=== PATIENT | female | born 1950 | race Caucasian/White ===

== ENCOUNTER 2019-01-07 09:11 | Emergency (ER) | payer MEDICARE, SELFPAY ==
[2019-01-07] VITALS (14 sets, daily range): BP systolic 107–124; BP diastolic 49–61; PULSE 64–79; RESP 11–19; TEMP 36.8; O2SAT 96–98
--- NOTE | 2019-01-07 09:58 | DI.CT_ITS ---
SYMPTOMS/DIAGNOSIS: CONFUSION, NAUSEA, CHILLS, ? ACUTE CVA CRANIAL CT: Noncontrast cranial CT was performed. There appears to be mild bifrontal cerebral atrophy. There is no evidence of acute intracranial hemorrhage, mass effect or midline shift. The orbital and temporal bone structures appear intact and the visualized paranasal sinuses are well aerated. CONCLUSION: No evidence of acute intracranial process.
--- NOTE | 2019-01-07 09:58 | DI.RAD_ITS ---
SYMPTOMS/DIAGNOSIS: COUGH, CHILLS, ? ACUTE DISEASE PA AND LATERAL CHEST: The lungs appear somewhat hyperinflated consistent with COPD. The cardiac size is within normal limits. No focal consolidation or pleural effusion seen. CONCLUSION: Presumed COPD. No evidence of acute process.
--- NOTE | 2019-01-07 10:02 | ED.GENADUL_ITS ---
Discharge Plan Disposition Patient Disposition: HOME Condition: Improving Discharge Details Chief Complaint: GenMedical Clinical Impression: UTI (urinary tract infection), Chills, Confusion Primary Care Provider: Judi Herr ED Provider: Yoselyn Allen Home Meds and New Rx's Prescriptions: New sulfamethoxazole-trimethoprim [Bactrim DS] 800-160 mg tablet 1 tab PO BID 7 Days Qty: 14 RF: 0 Continued ascorbic acid (vitamin C) [Vitamin C] 500 mg Tablet 500 mg PO DAILY RF: 0 vitamin B complex [B Complex 1] Tablet 1 tab PO DAILY RF: 0 sertraline [Zoloft] 50 mg Tablet 50 mg PO HS RF: 0 atenolol 50 mg Tablet 50 mg PO HS RF: 0 cholecalciferol (vitamin D3) [Vitamin D3] 2,000 unit Capsule 2,000 unit PO HS RF: 0 Akbar-Mag 200 mg calcium- 100 mg Tablet,Chewable 1 tab PO HS RF: 0 Centrum Silver Women 8 mg iron-400 mcg-300 mcg Tablet 1 tab PO DAILY RF: 0 biotin 1 mg Capsule 2 mg PO DAILY RF: 0 Probiotic 100 billion cell Capsule 0.5 cap PO DAILY RF: 0 acetaminophen [Tylenol Extra Strength] 500 mg Tablet 1,000 mg PO PRN PRNRF: 0 Premarin 0.625 mg/gram Cream 1 applic Vaginal PRN PRNRF: 0 naproxen sodium 220 mg Capsule 440 mg PO BID PRN PRNRF: 0 Discharge Instructions Instructions: Urinary Tract Infection in Women (ED), Altered Mental Status (ED) Additional Instructions: Take the antibiotics until finished. Alternate Tylenol Motrin as needed and directed for pain. Drink plenty of fluids get plenty of rest. Call your primary care doctor tomorrow to schedule a follow-up appointment for reevaluation. Return immediately to the emergency department with any worsening or concerning symptoms. Discharge Data Discharge Physician: Yoselyn Allen Medical Decision Making 68-year-old female with a history of breast cancer, exercise-induced asthma, dysthymia who presents with chills since last night with some dizziness, nausea and mild confusion at home today. Patient completely back to baseline at this time per daughter. Vitals within normal limits. Patient appears nontoxic. She is pleasant and in no acute distress. Normal ENT exam. Lungs clear to auscultation. Abdomen soft nontender. No focal deficits. EKG noted a rate of 74 and sinus and no acute ST findings. Discussed with patient at length regarding the possible diagnoses which includes urinary tract infection, pneumonia, sinus infection, CVA, electrolyte abnormality, arrhythmia, dehydration. Patient had not complained of any facial droop or extremity weakness or numbness and overall history and exam does not appear consistent with a TIA. She has no complaints of headache or neck pain, and no meningeal signs so doubt meningitis. Will place an IV, bolus IV fluids, labs, urinalysis, chest x-ray and CT head. 1200 --labs and imaging reviewed. White blood cell count 15. Normal rachelle ctrolytes. Troponin negative. Urinalysis notes 5-10 WBCs, few bacteria, small leukocyte esterase, and rare epithelial cells. Urine culture sent. Chest x-ray and CT head negative. Patient feels much better and denies any acute complaints. She admits to some mild nausea at this time but does not want any nausea medication. Discussed at length with patient and daughter that it is possible that urinary tract infection is the source of her chills, dizziness and mild confusion today. Patient is oriented x3. Daughter states she feels comfortable taking patient home. Again discussed at length the possible diagnoses and that this does not appear consistent with CVA, or meningitis. Patient was offered admission but states she does not want to stay in the hospital. Patient has tolerated Bactrim in the past. Will give 1 dose of Bactrim here as well as prescription for home. She is instructed to drink plenty of fluids, get plenty of rest, call the primary care doctor tomorrow to schedule follow-up appointment for reevaluation and return here immediately if worse. Medical Records Medical records reviewed: Yes I reviewed the patient's medical records. Imaging Data Radiologic Study: Radiologist's impression: CT Head Without Contrast EXAM DATE/TIME: 01/07/2019 10:00 AM FINDINGS: Brain: No acute intracranial hemorrhage. There is mild diffuse heterogeneity of the white matter attenuation, consistent with chronic white matter ischemic changes. Mild cerebral atrophy Ventricles: Normal. No ventriculomegaly. Bones/joints: Unremarkable. No acute fracture. Sinuses: Visualized sinuses are unremarkable. No acute sinusitis. Mastoid air cells: Visualized mastoid air cells are unremarkable. No mastoid effusion. Soft tissues: Unremarkable. IMPRESSION: No acute intracranial hemorrhage. XR Chest, 2 Views EXAM DATE/TIME: 01/07/2019 10:00 AM FINDINGS: Lungs: Hyperexpanded lung mayer consistent with COPD . No focal consolidation Pleural space: Unremarkable. No pleural effusion. No pneumothorax. Heart/Mediastinum: Unremarkable. No cardiomegaly. Bones/joints: Unremarkable. IMPRESSION: Hyperexpanded lung mayer consistent with COPD Lab Data Lab results reviewed: Yes I reviewed the patient's lab results. 01/07/19 11:33 Urine - Reflex from Ua Urine Culture - Pending Laboratory Tests Range/Units 01/07/19 01/07/19 01/07/19 09:40 09:40 09:40 WBC (4.4-10.8) k/cumm 15.15 H RBC (4.00-5.20) m/cumm 3.64 L Hgb (12.0-15.5) g/dL 12.2 Hct (36.0-46.0) % 36.1 MCV (80-95) fL 99.2 H MCH (27.0-33.0) pg 33.5 H MCHC (32.0-36.0) g/dL 33.8 RDW (11.7-14.6) % 12.8 Plt Count (130-400) x1000/uL 339 MPV (8.0-11.0) fL 10.1 Immature Gran % 0.3 Neutrophils % 87.6 Lymphocytes % 4.6 Monocytes % 6.5 Eosinophils % 0.7 Basophils % 0.3 Absolute Neutrophils (1.2-6.7) k/cumm 13.27 H Absolute Lymphocytes (1.2-3.4) k/cumm 0.70 L Absolute Monocytes (0.11-0.7) k/cumm 0.98 H Absolute Eosinophils (0.0-0.7) k/cumm 0.11 Absolute Basophils (0.0-0.2) k/cumm 0.05 Sodium (136-145) mmol/L 133 L Potassium (3.5-5.1) mmol/L 4.2 Chloride (98-107) mmol/L 99 Carbon Dioxide (21.0-32.0) mmol/L 22.5 Anion Gap (3-11) mmol/L 11.5 H BUN (7-18) mg/dL 23 H Creatinine (0.55-1.02) mg/dL 0.92 Estimated GFR/1.73 m2 (mL/min/1.73m2) >= 60.00 Glucose (70-100) mg/dL 111 H Lactate (0.6-1.4) mmol/l 1.0 Calcium (8.5-10.1) mg/dL 8.9 Magnesium (1.8-2.4) mg/dL 2.1 Total Bilirubin (0.2-1.0) mg/dL 0.6 AST (15-37) U/L 14 L ALT (12-78) U/L 16 Alkaline Phosphatase (46-116) U/L 56 Troponin I (0.00-0.06) ng/mL < 0.02 Total Protein (6.4-8.2) g/dL 7.4 Albumin (3.4-5.0) g/dL 3.5 Urine Color (Yellow) Urine Clarity Urine pH (5-8) Ur Specific [place] (1.005-1.025) Urine Protein (Negative) mg/dL Urine Ketones (Negative) mg/dL Urine Blood (Negative) Urine Nitrite (Negative) Urine Bilirubin (Negative) Urine Urobilinogen (Up TO 0.2) EU/dL Ur Leukocyte Esterase (Negative) Urine RBC (0-2) Urine WBC (0-5) HPF Ur Epithelial Cells (Negative) HPF Urine Crystals (Negative) HPF Urine Bacteria (Negative) HPF Urine Casts (Negative) LPF Urine Mucus (Negative) Ur Culture Indicated? Urine Glucose (Negative) mg/dL Range/Units 01/07/19 11:33 WBC (4.4-10.8) k/cumm RBC (4.00-5.20) m/cumm Hgb (12.0-15.5) g/dL Hct (36.0-46.0) % MCV (80-95) fL MCH (27.0-33.0) pg MCHC (32.0-36.0) g/dL RDW (11.7-14.6) % Plt Count (130-400) x1000/uL MPV (8.0-11.0) fL Immature Gran % Neutrophils % Lymphocytes % Monocytes % Eosinophils % Basophils % Absolute Neutrophils (1.2-6.7) k/cumm Absolute Lymphocytes (1.2-3.4) k/cumm Absolute Monocytes (0.11-0.7) k/cumm Absolute Eosinophils (0.0-0.7) k/cumm Absolute Basophils (0.0-0.2) k/cumm Sodium (136-145) mmol/L Potassium (3.5-5.1) mmol/L Chloride (98-107) mmol/L Carbon Dioxide (21.0-32.0) mmol/L Anion Gap (3-11) mmol/L BUN (7-18) mg/dL Creatinine (0.55-1.02) mg/dL Estimated GFR/1.73 m2 (mL/min/1.73m2) Glucose (70-100) mg/dL Lactate (0.6-1.4) mmol/l Calcium (8.5-10.1) mg/dL Magnesium (1.8-2.4) mg/dL Total Bilirubin (0.2-1.0) mg/dL AST (15-37) U/L ALT (12-78) U/L Alkaline Phosphatase (46-116) U/L Troponin I (0.00-0.06) ng/mL Total Protein (6.4-8.2) g/dL Albumin (3.4-5.0) g/dL Urine Color (Yellow) Yellow Urine Clarity Clear Urine pH (5-8) 6.5 Ur Specific [place] (1.005-1.025) <= 1.005 Urine Protein (Negative) mg/dL Negative Urine Ketones (Negative) mg/dL Trace H Urine Blood (Negative) Trace-intact H Urine Nitrite (Negative) Negative Urine Bilirubin (Negative) Negative Urine Urobilinogen (Up TO 0.2) EU/dL 0.2 Ur Leukocyte Esterase (Negative) Small H Urine RBC (0-2) 0-2 Urine WBC (0-5) HPF 5-10 Ur Epithelial Cells (Negative) HPF Rare Urine Crystals (Negative) HPF Negative Urine Bacteria (Negative) HPF Few Urine Casts (Negative) LPF Negative Urine Mucus (Negative) Negative Ur Culture Indicated? Yes Urine Glucose (Negative) mg/dL Negative ECG Data Attestation: I personally reviewed and interpreted this ECG (s) as follows: Interpretation: Rate of 74, sinus, no acute ST elevation or depression. QTc 393. QRS 86. HPI General Mode of arrival: ambulatory . Date/Time Provider Initiated Documentation: 01/07/19 09:31 . Limitations to Documentation: no limitations . Information obtained by: patient . HPI Narrative: Pt is a 68yo F who presents to the ED w/ a c/o chills since last night. She states she felt shaking chills last night and then felt better and had a good night sleep and then when she awoke this morning the chills and shaking returned. She did not check her temperature. She states 3 weeks ago she saw her primary care doctor for a URI/asthma exacerbation with cough and was treated with prednisone her symptoms improved. She states she still has occasional clear nasal discharge and dry cough but otherwise her URI is much better. Daughter states that this morning when she was with patient when she complained of the chills she also seemed to be dizzy, nauseous, and mildly confused. She states the confusion entailed her asking questions unlike her norm but otherwise she seemed oriented and denied any facial droop, extremity weakness or numbness. Daughter states this lasted approximately 1 hour and then patient was completely back to baseline. Patient still admits to some intermittent nausea. She denies chest pain, shortness of breath, abdominal pain or urinary symptoms. Patient states he has been eating and drinking normally. Related Data Home Medications Medication Instructions Recorded Confirmed Akbar-Mag 1 tab PO HS 01/07/19 01/07/19 Centrum Silver Women 1 tab PO DAILY 01/07/19 01/07/19 Premarin 1 applic VAGINAL PRN PRN 01/07/19 01/07/19 Probiotic 0.5 cap PO DAILY 01/07/19 01/07/19 acetaminophen [Tylenol Extra 1,000 mg PO PRN PRN 01/07/19 01/07/19 Strength] ascorbic acid (vitamin C) [Vitamin 500 mg PO DAILY 01/07/19 01/07/19 C] atenolol 50 mg PO HS 01/07/19 01/07/19 biotin 2 mg PO DAILY 01/07/19 01/07/19 cholecalciferol (vitamin D3) 2,000 unit PO HS 01/07/19 01/07/19 [Vitamin D3] naproxen sodium 440 mg PO BID PRN PRN 01/07/19 01/07/19 sertraline [Zoloft] 50 mg PO HS 01/07/19 01/07/19 sulfamethoxazole-trimethoprim 1 tab PO BID 7 Days #14 tab 01/07/19 [Bactrim DS] vitamin B complex [B Complex 1] 1 tab PO DAILY 01/07/19 01/07/19 Previous Rx's Medication Instructions Recorded sulfamethoxazole-trimethoprim 1 tab PO BID 7 Days #14 tab 01/07/19 [Bactrim DS] Allergies Allergy/AdvReac Type Severity Reaction Status Date / Time Penicillins Allergy Unverified 01/07/19 10:01 povidone-iodine Allergy Unverified 01/07/19 10:01 [From Betadine] soap [From Betadine] Allergy Unverified 01/07/19 10:01 General Stated Complaint: GenMedical JACKI: 3 Review of Systems Review of Systems All systems reviewed & are unremarkable except as noted in HPI and below Constitutional Reports as per HPI, Reports chills and Denies fever(s) Eyes Denies blurry vision ENT Denies dizziness, Denies sore throat and Denies throat swelling Cardiovascular Denies chest pain and Denies dyspnea Respiratory Reports cough and Denies dyspnea Gastrointestinal Denies abdominal pain, Denies diarrhea, Reports nausea and Denies vomiting Genitourinary Denies hematuria and Denies dysuria Musculoskeletal Denies back pain and Denies numbness Integumentary/Breasts Denies lesions and Denies rash Neurologic Denies dizziness, Denies focal weakness and Denies numbness Allergic/Immunologic Denies throat swelling [facility] Medical History Dysthymia (Acute) Exercise-induced asthma (Acute) Breast CA (Chronic) Osteoporosis (Chronic) Surgical History History of back surgery (Acute) History of appendectomy (Chronic) Hx of cholecystectomy (Chronic) Social History Smoking/Tobacco Use Status: Never Alcohol Intake: former Details: stopped about 20 days ago but was daily user for long time period Do you feel safe at home: Yes Do you feel safe in your relationship?: Yes Exam Const General: cooperative and healthy appearing Orientation: alert and awake HENMT Head: normal to inspection Ears: hearing grossly normal bilaterally, external ears normal and TM's normal bilaterally General nose exam: external nose normal Face and sinus: normal facial exam Mouth: oral mucosae normal Teeth and gingiva: dentition normal Throat: posterior oropharynx normal Eyes General: appearance normal, both eyes and all related structures Eyelids: eyelids normal Pupils: PERRL EOM: EOM intact bilaterally Neck Neck: normal visual inspection Lymphatic: no lymphadenopathy noted Chest Chest: normal inspection of the chest Resp Effort & Inspection: normal respiratory effort and able to speak in complete sentences Auscultation: clear to auscultation bilaterally Cardio Rate: regular rate Rhythm: regular rhythm GI Inspection: normal to inspection Palpation: soft, not firm, no guarding, no hepatosplenomegaly, no masses and nontender Auscultation: normal bowel sounds Back/Spine/Pelvis Back: no CVA tenderness Skin General skin exam: no rashes or lesions noted Neuro General: alert, awake, oriented x3, no meningeal signs and no focal motor deficits Cranial Nerves: CN's II-XI intact bilaterally Cognition: normal cognition Speech: speech normal Gait: normal gait Motor: muscle tone normal throughout and strength 5/5 throughout Sensory Exam: no sensory deficits noted Extrem General: normal to inspection, full ROM and no edema Psych Appearance: grossly normal Mental Status: mental status grossly normal Speech and Movement: speech and movement normal Affect: normal affect Thought Process: normal Course Vital Signs Temperature 98.2 F 01/07/19 09:21 Pulse 79 01/07/19 09:21 Respiratory Rate 18 01/07/19 09:21 Blood Pressure 114/56 L 01/07/19 09:21 Pulse Oximetry 97 01/07/19 09:21 Temperature 98.2 F 01/07/19 09:21 Temperature Source Skin 01/07/19 09:21 Pulse 79 01/07/19 09:21 Respiratory Rate 18 01/07/19 09:21 Blood Pressure 114/56 L 01/07/19 09:21 Blood Pressure Position Sitting 01/07/19 09:21 Pulse Oximetry 97 01/07/19 09:21
[2019-01-07] MEDS: Normal Saline 250 ML 500 ML IV (10:15)
[2019-01-07 10:19] LABS: Abs Immature Grans 0.05 k/cumm (0.0-0.09); Absolute Neutrophil Count 13.27 k/cumm (1.2-6.7); Basophils % 0.3; Eosinophils % 0.7; HCT 36.1 % (36.0-46.0); HGB 12.2 g/dL (12.0-15.5); Immature Grans % 0.3; Lymphocytes % 4.6; Mean Corp. HGB Concentration 33.8 g/dL (32.0-36.0); Mean Corpuscular Hemoglobin 33.5 pg (27.0-33.0); Mean Corpuscular Volume 99.2 fL (80-95); Mean Platelet Volume 10.1 fL (8.0-11.0); Monocytes % 6.5; Neutrophils % 87.6; Platelet Count 339 x1000/uL (130-400); RBC 3.64 m/cumm (4.00-5.20); RBC Distribution Width 12.8 % (11.7-14.6); White Blood Cell Count 15.15 k/cumm (4.4-10.8)
[2019-01-07 10:21] LABS: Absolute Basophil Count 0.05 k/cumm (0.0-0.2); Absolute Eosinophil Count 0.11 k/cumm (0.0-0.7); Absolute Monocyte Count 0.98 k/cumm (0.11-0.7)
[2019-01-07 10:34] LABS: ALT 16 U/L (12-78); AST 14 U/L (15-37); Albumin 3.5 g/dL (3.4-5.0); Alkaline Phosphatase 56 U/L (46-116); Anion Gap 11.5 mmol/L (3-11); BUN 23 mg/dL (7-18); Bilirubin, Total 0.6 mg/dL (0.2-1.0); CO2 22.5 mmol/L (21.0-32.0); CREATININE 0.92 mg/dL (0.55-1.02); Calcium 8.9 mg/dL (8.5-10.1); Chloride 99 mmol/L (98-107); Glucose 111 mg/dL (70-100); Magnesium 2.1 mg/dL (1.8-2.4); Potassium 4.2 mmol/L (3.5-5.1); Sodium 133 mmol/L (136-145); Total Protein 7.4 g/dL (6.4-8.2)
[2019-01-07 10:38] LABS: Troponin I < 0.02 ng/mL (0.00-0.06)
--- NOTE | 2019-01-07 10:58 | DI.VRAD_ITS ---
EXAM: CT Head Without Contrast EXAM DATE/TIME: 01/07/2019 10:00 AM CLINICAL HISTORY: 68 years old, female; Signs and symptoms; Dizziness and fever TECHNIQUE: Imaging protocol: Axial computed tomography images of the head/brain without contrast. Coronal and sagittal reformatted images were created and reviewed. COMPARISON: No relevant prior studies available. FINDINGS: Brain: No acute intracranial hemorrhage. There is mild diffuse heterogeneity of the white matter attenuation, consistent with chronic white matter ischemic changes. Mild cerebral atrophy Ventricles: Normal. No ventriculomegaly. Bones/joints: Unremarkable. No acute fracture. Sinuses: Visualized sinuses are unremarkable. No acute sinusitis. Mastoid air cells: Visualized mastoid air cells are unremarkable. No mastoid effusion. Soft tissues: Unremarkable. IMPRESSION: No acute intracranial hemorrhage. Dictated and Authenticated by: Johnny Adkins MD. Ordering:DARRIUS Topete MD
--- NOTE | 2019-01-07 11:01 | DI.VRAD_ITS ---
EXAM: XR Chest, 2 Views EXAM DATE/TIME: 01/07/2019 10:00 AM CLINICAL HISTORY: 68 years old, female; Signs and symptoms; Other: Chills TECHNIQUE: Imaging protocol: XR of the chest, 2 views. COMPARISON: No relevant prior studies available. FINDINGS: Lungs: Hyperexpanded lung mayer consistent with COPD . No focal consolidation Pleural space: Unremarkable. No pleural effusion. No pneumothorax. Heart/Mediastinum: Unremarkable. No cardiomegaly. Bones/joints: Unremarkable. IMPRESSION: Hyperexpanded lung mayer consistent with COPD Dictated and Authenticated by: Johnny Adkins MD. Ordering:DARRISU Topete MD
[2019-01-07 11:51] LABS: Bilirubin Negative (Negative); Blood Trace-intact (Negative); Clarity Clear; Glucose Negative (Negative); Ketones Trace mg/dL (Negative); Leukocyte Esterase Small (Negative); Nitrite Negative (Negative); Specific Gravity <= 1.005 (1.005-1.025); Urobilinogen 0.2 EU/dL (Up TO 0.2); pH 6.5 (5-8)
[2019-01-07 12:04] LABS: Bacteria Few HPF (Negative); C & S Indicated? Yes; Casts Negative LPF (Negative); Crystals Negative HPF (Negative); Epithelial Cells Rare HPF (Negative); Mucus Negative (Negative); RBC 0-2 (0-2)
[2019-01-07] MEDS: Sulfameth/Trimeth DS TAB 1 TAB PO (12:38)
== END 2019-01-07 12:51 | disposition home or self-care (01) ==
LOC: ER 13:08
PROVIDERS: Emergency Provider Physician Assistant; PCP Internal Medicine
DX: N39.0 Urinary tract infection, site not specified (principal); B96.20 Unspecified Escherichia coli [E. coli] as the cause of diseases classified elsewhere; R41.0 Disorientation, unspecified; R68.83 Chills (without fever)
CPT/HCPCS: 36415; 80053; 87077; 93005; 96360; 96361; 99285; 70450; 71046; 81003; 81015; 83605; 83735; 84484; 85025; 87086; 87186; 93010